=== PATIENT | female | born 1955 | race Caucasian/White ===

== ENCOUNTER 2024-06-16 11:46 | Emergency (ER) | payer OTHER, MEDICARE ==
[2024-06-16] MEDS: methylPREDNISolone SOD SUCCI 125 MG/2 ML VIAL IV STA (12:19)
[2024-06-16] MEDS: IPRATROPIUM-ALBUTEROL 3 ML NEB INHALATION STA (12:30)
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
[2024-06-16 12:42] LABS: INR 1.2 (<1.2); Partial Thromboplastin Time 22.3 sec (22.0-30.0); Prothrombin Time 12.8 sec (10.0-12.5)
--- NOTE | 2024-06-16 12:52 | XR ---
EXAMINATION TYPE: XR chest 2V DATE OF EXAM: 06/16/2024 12:32 PM CLINICAL INDICATION: Female, 68 years old with history of difficulty breathing; [facility] COMPARISON: None TECHNIQUE: XR chest 2V Frontal view of the chest. FINDINGS: Lungs/Pleura: Multifocal airspace opacities. No evidence of pneumothorax or pleural effusion. Pulmonary vascularity: Unremarkable. Heart/mediastinum: Cardiomediastinal silhouette is unremarkable. Musculoskeletal: No acute osseous pathology. IMPRESSION: Multifocal airspace opacities correlate for pneumonia.
[2024-06-16 12:56] LABS: Anisocytosis Slight; HCT 20.3 % (34.0-46.0); Hypochromasia Marked; MCV 106.1 fL (80.0-100.0); Macrocytosis Marked; Mean Platelet Volume 9.1; Platelet Count 214 k/uL (150-450); Poikilocytosis Slight; RBC 1.91 m/uL (3.80-5.40); RDW 18.3 % (11.5-15.5)
[2024-06-16 12:59] LABS: HGB 6.5 gm/dL (11.4-16.0)
[2024-06-16 13:26] LABS: ALT 64 U/L (4-34); AST 124 U/L (14-36); African American GFR (CKD) >90 (>60 ml/min/1.73 sqM); Albumin 2.4 g/dL (3.5-5.0); Alkaline Phosphatase 111 U/L (38-126); Anion Gap 4 mmol/L; Blood Urea Nitrogen 21 mg/dL (7-17); Calcium 7.9 mg/dL (8.4-10.2); Carbon Dioxide 18 mmol/L (22-30); Chloride 109 mmol/L (98-107); Glucose 136 mg/dL (74-99); Non-African American GFR(CKD) 80 (>60 ml/min/1.73 sqM); Potassium 3.9 mmol/L (3.5-5.1); Sodium 131 mmol/L (137-145); Total Bilirubin 0.8 mg/dL (0.2-1.3); Total Protein 5.9 g/dL (6.3-8.2)
[2024-06-16 13:33] LABS: NT-Pro-B-Type Natriuretic Pept 470 pg/mL
[2024-06-16 14:07] LABS: Neutrophils % (M) 77 %; Nucleated Red Blood Cells 1 /100 WBC (0-0); Total Cells Counted 200
[2024-06-16 14:08] LABS: Lymphocytes # (M) 3.92 k/uL (1.0-4.8); Monocytes # (M) 1.96 k/uL (0-1.0); Neutrophils # (M) 18.87 k/uL (1.3-7.7); WBC 24.5 k/uL (3.8-10.6)
[2024-06-16 14:09] LABS: Polychromasia Present
[2024-06-16 14:10] LABS: Target Cells Present
[2024-06-16 14:18] LABS: Appearance,Urine Clear (Clear); Bilirubin,Urine Negative (Negative); Blood,Urine Negative (Negative); Color,Urine Colorless; Glucose,Urine (UA) Negative (Negative); Ketones,Urine Negative (Negative); Leukocyte Esterase,Urine Negative (Negative); Nitrite,Urine Negative (Negative); Protein,Urine Negative (Negative); Specific Gravity,Urine 1.007 (1.001-1.035); Urobilinogen,Urine <2.0 mg/dL (<2.0)
--- NOTE | 2024-06-16 14:37 | CT ---
EXAMINATION TYPE: CT chest angio for PE CT DLP: 1255.2 mGycm, Automated exposure control for dose reduction was used. DATE OF EXAM: 06/16/2024 2:27 PM COMPARISON: CT chest abdomen and pelvis 11/03/2014, chest radiograph 06/16/2024 CLINICAL INDICATION:Female, 68 years old with history of elevated d-dimer, hypoxia; elevated d-dimer, hypoxia TECHNIQUE/CONTRAST: CTA scan of the thorax is performed with IV Contrast, patient injected with 100ml mL of Isovue 370, p ulmonary embolism protocol. MIP images are created and reviewed. FINDINGS: Pulmonary Artery: There is no evidence for a filling defect within the pulmonary vasculature to sugge st acute pulmonary embolism. The pulmonary artery is of normal size. Lungs/Pleura: No pleural effusion or pneumothorax. Extensive multifocal groundglass opacities identif ied. Airway: Large airways are patent. Heart: Heart is within normal limits for size.. No pericardial effusion. Vasculature: No evidence of aortic aneurysm. Mediastinum: Mildly prominent and enlarged mediastinal lymph nodes with exam including a subcarinal l ymph node measuring 1.1 cm short axis. Mildly prominent bilateral hilar lymph nodes. Musculoskeletal: No acute osseous abnormalities. Mild mid thoracic degenerative disc disease. Soft Tissues: Unremarkable. Lower neck: No significant findings. Upper Abdomen: Please review CT scan abdomen pelvis of same day for findings. IMPRESSION: 1. No evidence of pulmonary embolism. 2. Multifocal groundglass pulmonary opacities suggests an atypical pulmonary infection. 3. Reactive mediastinal and hilar lymphadenopathy likely secondary to #2 versus other etiologies.
--- NOTE | 2024-06-16 14:48 | CT ---
EXAMINATION TYPE: CT abdomen pelvis w con CT DLP: 1255.2 mGycm, Automated exposure control for dose reduction was used. DATE OF EXAM: 06/16/2024 2:27 PM COMPARISON: CT chest abdomen and pelvis 11/03/2014 CLINICAL INDICATION:Female, 68 years old with history of elevated d-dimer, hypoxia; elevated d-dimer, hypoxia TECHNIQUE: Standard CT of the abdomen and pelvis following the administration of 100 cc of Isovue 3 00 IV contrast material. Coronal and sagittal reformats were performed. FINDINGS: LOWER CHEST: Please see dedicated CTA chest for findings ABDOMEN LIVER: Subtle surface nodularity without focal lesion identified. GALLBLADDER AND BILE DUCTS: Contracted gallbladder. No biliary ductal dilatation. PANCREAS: Enhances homogeneously. No pancreatic duct dilatation. No organized fluid collection. Mild surrounding fat stranding. SPLEEN: Postsurgical changes from splenectomy redemonstrated. Scattered regions of splenosis identifi ed throughout the abdomen again. Largest is posterior hepatic measuring up to 4.0 cm. ADRENAL GLANDS: Unremarkable. KIDNEYS AND URETERS: No evidence of hydronephrosis or renal calculus. The kidneys enhance symmetrical ly. Contrast is demonstrated within both collecting systems on the delayed phase. PELVIS BLADDER: Incompletely distended but grossly unremarkable. REPRODUCTIVE: Unremarkable. ABDOMEN & PELVIS STOMACH AND BOWEL: Paraesophageal collateral vessels identified. Stomach is unremarkable. Mild circum ferential wall thickening of the ascending colon. No visualization of the appendix. No evidence of brenda wel obstruction. PERITONEUM: No evidence of pneumoperitoneum. Trace perihepatic ascites. Mesenteric edema identified. VASCULATURE: Mild atherosclerotic calcifications are present throughout the abdominal aorta and its b ranches. No evidence of aortic aneurysm. Portal venous system appears patent. MUSCULOSKELETAL: No acute osseous abnormalities. Grade 1 anterolisthesis of L4 on L5 without evidence of pars defects. LYMPH NODES: Enlarged gastrohepatic ligament lymph node measuring up to 1.6 cm with additional enlarg ed portal venous lymph nodes in periaortic prominent lymph nodes. SOFT TISSUE/ABDOMINAL WALL: Diffuse anasarca. Few gluteal soft tissue calcifications. Fat filled marta umbilical hernia measuring up to 2.8 cm. IMPRESSION: 1. Nonspecific enlarged gastrohepatic ligament lymph node with additional prominent portal venous an d periaortic lymph nodes. May be reactive to CTA chest finding versus other etiologies. 2. Findings suggestive of hepatic cirrhosis with nodular appearance to the liver and esophageal colla teral vessels. 3. Subtle surrounding fat stranding/edema around the pancreas which is probable reactive due to #2 ve rsus pancreatitis. Correlate with lipase values. 4. Wall thickening involving the ascending colon which may relate to infectious/inflammatory colitis versus probable colopathy from cirrhosis. 5. Trace perihepatic ascites with mesenteric edema and diffuse anasarca. 6. Post surgical changes of hysterectomy with splenosis demonstrated throughout the abdomen. 7. Fat filled periumbilical hernia.
[2024-06-16] MEDS: PIPERACILLIN-TAZOBACTAM 3.375 GM in SODIUM CHLORIDE 0.9% 100 ML IVPB SCH (15:14)
[2024-06-16 16:27] VITALS: RESP 18
[2024-06-16 16:51] VITALS: BP 149/65; PULSE 107; TEMP 98.2
== END 2024-06-16 16:50 | disposition other institution (70) ==
LOC: EC 11:46
DX: R56.9 Unspecified convulsions
CPT/HCPCS: 36415; 36430; 71046; 71275; 74177; 80053; 81003; 82272; 83605; 83880; 84484; 85025; 85379; 85610; 85730; 86850; 86900; 86901; 86920; 87636; 93005; 94640; 96365; 96366; 96374; 99291

== ENCOUNTER → 2024-07-29 | Outpatient (CLI) | payer OTHER, MEDICARE ==
[2024-07-29 18:25] LABS: Basophils # (A) 0.06 X 10*3/uL (0.00-0.10); Basophils % (A) 0.8 %; Eosinophils # (A) 0.05 X 10*3/uL (0.04-0.35); Eosinophils % (A) 0.7 %; HCT 30.4 % (37.2-46.3); Lymphocytes # (A) 2.02 X 10*3/uL (0.90-5.00); Lymphocytes % (A) 28.2 %; MCH 30.8 pg (27.0-32.0); MCHC 32.9 g/dL (32.0-37.0); MCV 93.5 FL (80.0-97.0); Mean Platelet Volume 13.7 FL (9.5-12.2); Monocytes # (A) 1.87 X 10*3/uL (0.20-1.00); Monocytes % (A) 26.1 %; NRBC Per 100 WBC 0 X 10*3/uL (0.00-0.01); Neutrophils # (A) 3.09 X 10*3/uL (1.80-7.70); Neutrophils % (A) 43.1 %; Platelet Count 160 X 10*3/uL (140-440); RBC 3.25 X 10*6/uL (4.10-5.20); RDW 19.2 % (11.5-14.5); WBC 7.17 X 10*3/uL (4.50-10.00)
[2024-07-29 18:37] LABS: ALT 52 U/L (8-44); AST 106 U/L (13-35); Albumin 2.4 g/dL (3.8-4.9); Albumin/Globulin Ratio 0.53 Ratio (1.60-3.17); Alkaline Phosphatase 103 U/L (41-126); Calcium 8.3 mg/dL (8.7-10.3); Chloride 103 mmol/L (96-109); Globulin 4.5 g/dL (1.6-3.3); Glucose 108 mg/dL (70-110); Magnesium 1.8 mg/dL (1.5-2.4); Potassium 3.6 mmol/L (3.5-5.5); Sodium 137 mmol/L (135-145); Total Bilirubin 0.8 mg/dL (0.3-1.2); Total Protein 6.9 g/dL (6.2-8.2)
[2024-07-29 18:38] LABS: T4, Free (Free Thyroxine) 1.39 ng/dL (0.80-1.80)
[2024-07-29 18:40] LABS: Thyroid Peroxidase Antibodies 24.4 U/mL (0.0-33.0)
== END | disposition home or self-care (01) ==
LOC: LABWHC1 12:56
PROVIDERS: ATTEND Family Medicine
CPT/HCPCS: 36415; 80053; 82140; 83735; 84439; 84443; 85025; 86376; 86800

== ENCOUNTER → 2024-08-15 | Outpatient (CLI) | payer OTHER, MEDICARE ==
[2024-08-16 03:03] LABS: Basophils # (A) 0.08 X 10*3/uL (0.00-0.10); Basophils % (A) 0.9 %; Eosinophils # (A) 0.35 X 10*3/uL (0.04-0.35); Eosinophils % (A) 3.8 %; HCT 33.4 % (37.2-46.3); HGB 10.9 g/dL (12.0-15.0); Lymphocytes # (A) 2.84 X 10*3/uL (0.90-5.00); Lymphocytes % (A) 30.8 %; MCH 29.5 pg (27.0-32.0); MCHC 32.6 g/dL (32.0-37.0); MCV 90.3 FL (80.0-97.0); Mean Platelet Volume 12.4 FL (9.5-12.2); Monocytes % (A) 22.8 %; NRBC Per 100 WBC 0 X 10*3/uL (0.00-0.01); Neutrophils # (A) 3.81 X 10*3/uL (1.80-7.70); Neutrophils % (A) 41.2 %; Platelet Count 177 X 10*3/uL (140-440); RDW 19.7 % (11.5-14.5); WBC 9.23 X 10*3/uL (4.50-10.00)
[2024-08-16 03:29] LABS: Hepatitis C IgG Antibody Reactive (Nonreactive)
[2024-08-16 03:42] LABS: ALT 142 U/L (8-44); AST 296 U/L (13-35); Albumin 2.8 g/dL (3.8-4.9); Albumin/Globulin Ratio 0.57 Ratio (1.60-3.17); Alkaline Phosphatase 107 U/L (41-126); BUN/Creat Ratio 14.75 Ratio (12.00-20.00); Blood Urea Nitrogen 17.7 mg/dL (9.0-27.0); Calcium 9.2 mg/dL (8.7-10.3); Carbon Dioxide 24.8 mmol/L (21.6-31.8); Chloride 103 mmol/L (96-109); Globulin 4.9 g/dL (1.6-3.3); Glucose 148 mg/dL (70-110); Iron 195 UG/DL (50-170); Potassium 5.1 mmol/L (3.5-5.5); Sodium 138 mmol/L (135-145); Total Bilirubin 0.8 mg/dL (0.3-1.2); Total Iron Binding Capacity 312 UG/DL (228-460); Total Protein 7.7 g/dL (6.2-8.2)
[2024-08-16 04:49] LABS: Reticulocyte % 3.15 % (0.10-1.80)
== END | disposition home or self-care (01) ==
LOC: LABWHC1 15:11
PROVIDERS: ATTEND Family Medicine
CPT/HCPCS: 36415; 80053; 82105; 82607; 82728; 82747; 83540; 83550; 85025; 85045; 86803

== ENCOUNTER → 2024-09-05 | Outpatient (CLI) | payer OTHER, MEDICARE | END | disposition home or self-care (01) | LOC: LABWHC1 15:17 | PROVIDERS: ATTEND Internal Medicine Gastroenterology | DX: B18.2 Chronic viral hepatitis C (principal) | CPT/HCPCS: 36415 ==